=== PATIENT | male | born 1955 | race Caucasian/White ===

== ENCOUNTER 2022-10-06 08:04 | Outpatient (CLI) | payer MEDICARE | END 2022-10-06 08:05 | disposition home or self-care (01) | LOC: BICMRI 08:04 | PROVIDERS: ATTEND Orthopaedic Surgery | DX: M75.102 Unspecified rotator cuff tear or rupture of left shoulder, not specified as traumatic (principal); M19.012 Primary osteoarthritis, left shoulder; S46.212A Strain of muscle, fascia and tendon of other parts of biceps, left arm, initial encounter ==

== ENCOUNTER 2023-01-31 08:04 | Outpatient (CLI) | payer MEDICARE | END 2023-01-31 08:05 | disposition home or self-care (01) | LOC: BICMRI 08:04 | PROVIDERS: ATTEND Family Medicine | DX: M47.22 Other spondylosis with radiculopathy, cervical region (principal); M48.02 Spinal stenosis, cervical region; M47.813 Spondylosis without myelopathy or radiculopathy, cervicothoracic region | CPT/HCPCS: 72141 ==